=== PATIENT | male | born 1980 | race Caucasian/White ===

== ENCOUNTER 2023-11-21 09:41 | Emergency (ER) | payer OTHER ==
[~2023-11-21] VITALS: Ht 177.8 cm; Wt 81.6 kg
[2023-11-21] MEDS ORDERED: IBUP-1953 PO (10:11)
[2023-11-21] MEDS ORDERED: METH-647 PO (10:11)
[2023-11-21] MEDS ORDERED: IBUPROFEN 600 MG TABLET ONE (10:14)
[2023-11-21] MEDS ORDERED: METHOCARBAMOL (500MG) 500 MG TABLET ONE (10:14)
[2023-11-21] MEDS: IBUPROFEN 600 MG TABLET PO ONE (10:16)
[2023-11-21] MEDS: METHOCARBAMOL (500MG) 500 MG TABLET PO ONE (10:16)
--- NOTE | 2023-11-21 10:49 | NUR ---
Patient discharged to home in stable condition. Written and verbal after care instructions given. Patient verbalizes understanding of instruction.
[2023-11-21 10:50] VITALS: BP 141/89; TEMP 97.5; O2SAT 100
== END 2023-11-21 10:50 | disposition home or self-care (01) ==
LOC: ER 09:41
DX: M62.838 Other muscle spasm (principal); M25.511 Pain in right shoulder; R07.89 Other chest pain

== ENCOUNTER 2023-11-24 11:49 | Emergency (ER) | payer OTHER ==
[~2023-11-24] VITALS: Ht 180.3 cm; Wt 81.6 kg
[~2023-11-24 11:49] MED LIST: IBUP-1953 PO; METH-647 PO
--- NOTE | 2023-11-24 11:50 | NUR ---
RECEIVED PT 43 WALKIN IN FROM HOME C/O CP FOR 5 DAYS
[2023-11-24 11:56] VITALS: TEMP 98
--- NOTE | 2023-11-24 12:00 | NUR ---
C/O BACK PAIN FOR 5 DAYS MARGARET DREW
[2023-11-24 12:10] VITALS: BP 147/108
--- NOTE | 2023-11-24 12:15 | NUR ---
SEEN BY DR. MONTGOMERY
[2023-11-24] MEDS ORDERED: LIDO30AD10 TP (12:28)
[2023-11-24] MEDS ORDERED: METH4TAB17 PO (12:28)
[2023-11-24] MEDS ORDERED: KETOROLAC TROMETHAMINE 15 MG/ML VIAL ONE (12:30)
[2023-11-24] MEDS: KETOROLAC TROMETHAMINE 15 MG/ML VIAL IM ONE (12:35)
[2023-11-24 12:40] VITALS: O2SAT 99
--- NOTE | 2023-11-24 12:40 | NUR ---
Patient discharged to home in stable condition. Written and verbal after care instructions given. Patient verbalizes understanding of instruction.
== END 2023-11-24 12:45 | disposition home or self-care (01) ==
LOC: ER 11:52
DX: S46.811A Strain of other muscles, fascia and tendons at shoulder and upper arm level, right arm, initial encounter (principal); M54.12 Radiculopathy, cervical region; M54.6 Pain in thoracic spine; R20.2 Paresthesia of skin; Z88.2 Allergy status to sulfonamides
CPT/HCPCS: 99283; 96372; J1885